=== PATIENT | male | born 1975 ===

== ENCOUNTER → 2020-07-04 07:00 | Outpatient (CLI) | payer OTHER ==
[~2020-07-04 07:00] MED LIST: CLONAZEPAM0.5 MG PO; ELAVIL PO; FORTAMET500 MG PO; RESTORIL30 M1 PO; ZOCOR40 MG PO
== END | disposition home or self-care (01) ==
LOC: LAB 07:00 → ADM 10:45 → EDSTATUS 07-11 10:45 → CIR.AMB 07-11 10:45
PROVIDERS: ATTEND Surgery
DX: Z20.828 Contact with and (suspected) exposure to other viral communicable diseases (principal); N52.8 Other male erectile dysfunction; N48.6 Induration penis plastica; Z01.810 Encounter for preprocedural cardiovascular examination; Z01.812 Encounter for preprocedural laboratory examination; Z01.811 Encounter for preprocedural respiratory examination